=== PATIENT | male | born 1965 | race Caucasian/White ===

== ENCOUNTER 2023-04-03 09:00 | Day surgery (SDC) | payer BC ==
[~2023-04-03 09:00] MED LIST: LACTATED RINGERS 1,000 ML IV SCH
[2023-04-03 09:46] VITALS: TEMP 97.4
[2023-04-03] MEDS ORDERED: PROPOFOL 10 MG/ML 20 ML VIAL IV ONE (10:11)
--- NOTE | 2023-04-03 10:16 | P.GSHP ---
History of Present Illness H&P Date: 04/03/23 Chief Complaint: Screening colonoscopy This is a 4-year-old male presents today for screening colonoscopy. Patient denies a significant GI complaints. Past Medical History Past Medical History: GERD/Reflux Additional Past Medical History / Comment(s): Screening colonoscopy, past blood stool, currently has L hip pain/physical therapy History of Any Multi-Drug Resistant Organisms: None Reported Past Surgical History: Tonsillectomy Additional Past Surgical History / Comment(s): COLONOSCOPIES, MANDIBULAR REDUCTION. DETACHED LEFT THUMB,REATTACHED POST INJURY Past Anesthesia/Blood Transfusion Reactions: No Reported Reaction Additional Past Anesthesia/Blood Transfusion Reaction / Comment(s): Pt unsure if ever received blood. Past Psychological History: No Psychological Hx Reported Additional Psychological History / Comment(s): Resides with spouse. Smoking Status: Never smoker Past Alcohol Use History: None Reported Past Drug Use History: None Reported - Past Family History Father Family Medical History: Coronary Artery Disease (CAD), Dementia Additional Family Medical History / Comment(s): from complications of dementia. Mother Additional Family Medical History / Comment(s): complications of lupus. Medications and Allergies Home Medications Medication Instructions Recorded Confirmed Type Aspirin [Adult Low Dose Aspirin EC] 81 mg PO [facility] 09/19/15 04/03/23 History Ascorbic Acid [Vitamin C] 500 mg PO [facility] 03/26/23 04/03/23 History Calcium Carbonate [Calcium] 2,400 mg PO 03/26/23 04/03/23 History Garlic 1,000 mg PO [facility] 03/26/23 04/03/23 History Multivitamin [Multivitamins Adult 1 each PO [facility] 03/26/23 04/03/23 History Gummies] Aylett-3/Dha/Epa/Fish Oil [Fish Oil 1 cap PO 03/26/23 04/03/23 History 1,000 mg Softgel] Acetaminophen [Tylenol Extra 1,000 mg PO 03/31/23 04/03/23 History Strength] Allergies Allergy/AdvReac Type Severity Reaction Status Date / Time No Known Allergies Allergy Verified 04/03/23 09:38 Surgical - Exam Vital Signs Temp Pulse BP Pulse Ox 97.4 F L 69 142/75 99 04/03/23 09:44 04/03/23 09:44 04/03/23 09:44 04/03/23 09:44 - General well developed, well nourished, no distress - Eyes PERRL - ENT normal pinna - Neck no masses - Respiratory normal expansion - Cardiovascular Rhythm: regular - Abdomen Abdomen: soft, non tender Assessment and Plan Assessment: We'll perform screening colonoscopy.
--- NOTE | 2023-04-03 10:36 | P.OP ---
Date of Procedure: 04/03/23 Preoperative Diagnosis: Screen colonoscopy Postoperative Diagnosis: Normal colon Procedure(s) Performed: Normal colonoscopy Anesthesia: MAC Surgeon: Raymond Dai Pathology: none sent Condition: stable Disposition: PACU Description of Procedure: PROCEDURE: The patient was placed on the endoscopy table in the lateral position. Digital rectal examination was performed which revealed no abnormalities. The prostate was symmetrical without nodules. Flexible colonoscope was then placed in the patient's anus and passed throughout the entire colon. The ileocecal valve was visualized. The cecum, ascending, transverse, descending and sigmoid colon were normal. The rectum was normal as well. There were no masses, polyps or diverticula noted in the entire colon. SUMMARY OF FINDINGS: Normal colonoscopy.
[2023-04-03 11:05] VITALS: BP 115/79; PULSE 66; RESP 14
== END 2023-04-03 11:43 | disposition home or self-care (01) ==
LOC: ORWHC2ENDO 09:00
PROVIDERS: ATTEND Surgery
DX: Z12.11 Encounter for screening for malignant neoplasm of colon (principal); K21.9 Gastro-esophageal reflux disease without esophagitis; Z82.49 Family history of ischemic heart disease and other diseases of the circulatory system; Z79.82 Long term (current) use of aspirin; Z98.890 Other specified postprocedural states; Z79.899 Other long term (current) drug therapy; Z90.89 Acquired absence of other organs; Z79.01 Long term (current) use of anticoagulants
CPT/HCPCS: 45378; J2704